=== PATIENT | male | born 1975 | race Caucasian/White ===

== ENCOUNTER → 2021-08-26 | Day surgery (SDC) | payer OTHER ==
[~2021-08-26] MED LIST: AMARYL4 MG PO; CIALIS5 MG PO; CYCLOBENZAPRINE10 MG PO; EFFEXOR XR 150150 MG PO; EFFEXOR XR75 MG PO; HUMALOG100 UNIT/1 SQ; HYDROCODON-ACE1 EAC4 PO; IBU800 MG PO; LOMOTIL PO; LOSARTAN-HCTZ1 EAC1 PO; MOBIC15 MG PO; NEURONTIN300 MG PO; NORVASC10 MG PO; OZEMPIC1 MG/0.71 SQ; PHENERGAN 25 MG25 M1 PO; PRAVASTATIN SOD40 MG PO; RESTORIL15 MG PO; STIOLTO RESPIMAT4 GM INH; TOUJEO SQ; VITAMIN B12 PO; VITAMIN D31250 MCG PO; ZOFRAN 4 MG TAB4 MG PO
[2021-08-26 09:12] LABS: BUN/CREATININE RATIO 10 (0-10)
== END | disposition home or self-care (01) ==
LOC: OR 08:02
PROVIDERS: Surgery
DX: K81.1 Chronic cholecystitis (principal); K82.8 Other specified diseases of gallbladder; I10 Essential (primary) hypertension; J45.909 Unspecified asthma, uncomplicated; E66.01 Morbid (severe) obesity due to excess calories; E11.9 Type 2 diabetes mellitus without complications; Z68.38 Body mass index [BMI] 38.0-38.9, adult; Z79.4 Long term (current) use of insulin; Z79.899 Other long term (current) drug therapy
CPT/HCPCS: 36415; 80048; 82962; 93005; C1729; J0690; J1100; J1170; J2250; J2405; J2550; J2704; J2710; J3010; J7030; J7120